=== PATIENT | male | born 1990 | race Caucasian/White ===

== ENCOUNTER → 2018-12-27 | Outpatient (CLI) | payer BC ==
[2018-12-27 18:51] LABS: Vitamin D 25 Hydroxy 30.9 ng/mL (30.0-100.0)
[2018-12-27 19:26] LABS: African American GFR (CKD) 106.1 (60.0-200.0); Albumin 4.6 g/dL (3.80-4.90); Albumin/Globulin Ratio 1.84 (1.60-3.17); Anion Gap 11.1 mmol/L (4.00-12.00); BUN/Creat Ratio 13.64 Ratio (12.00-20.00); Calcium 7.8 mg/dL (8.7-10.3); Carbon Dioxide 25.9 mmol/L (21.6-31.8); Globulin 2.5 g/dL (1.6-3.3); Parathyroid Hormone Intact 5.8 pg/mL (14.0-72.0); Potassium 4.2 mmol/L (3.5-5.5); Total Bilirubin 1.1 mg/dL (0.3-1.2); Total Protein 7.1 g/dL (6.2-8.2)
== END | disposition home or self-care (01) ==
LOC: LABWHC1 09:08
PROVIDERS: ATTEND Internal Medicine Endocrinology, Diabetes & Metabolism
DX: E20.8 Other hypoparathyroidism (principal)
CPT/HCPCS: 36415; 80053; 82306; 83970

== ENCOUNTER 2022-07-08 08:01 | Emergency (ER) | payer BC ==
[2022-07-08 08:05] VITALS: RESP 16; TEMP 97
[2022-07-08] MEDS ORDERED: diphenhydrAMINE 50 MG/ML 1 ML VIAL IM STA (08:15)
[2022-07-08 08:30] LABS: Basophils # (A) 0.1 k/uL (0-0.2); Basophils % (A) 1 %; Eosinophils # (A) 0.4 k/uL (0-0.7); Eosinophils % (A) 6 %; HCT 42.9 % (39.0-53.0); HGB 15.3 gm/dL (13.0-17.5); Hyperchromasia Slight; Lymphocytes # (A) 1.6 k/uL (1.0-4.8); Lymphocytes % (A) 21 %; MCH 31.3 pg (25.0-35.0); MCHC 35.7 g/dL (31.0-37.0); MCV 87.7 fL (80.0-100.0); Mean Platelet Volume 9.8; Monocytes # (A) 0.4 k/uL (0-1.0); Monocytes % (A) 6 %; Neutrophils # (A) 4.8 k/uL (1.3-7.7); Neutrophils % (A) 65 %; Platelet Count 191 k/uL (150-450); RDW 11.5 % (11.5-15.5); WBC 7.4 k/uL (3.8-10.6)
--- NOTE | 2022-07-08 08:30 | ED ---
Skin/Abscess/FB HPI - General Chief complaint: Skin/Abscess/Foreign Body Stated complaint: hives Time Seen by Provider: 07/08/22 08:12 Source: patient Mode of arrival: ambulatory Limitations: no limitations - History of Present Illness Initial comments: Patient is a 31-year-old male presenting to the emergency room with complaints of waking this morning with a rash to his bilateral upper and lower extremities. He denies any rash to the trunk or head. He denies any recent illnesses though his son recently was sick. He denies any changes in medication or new medications, changes in detergents or other personal hygiene products. He denies any known exposure to skin irritants such as chemicals or plants. He is on calcitriol for hypocalcemia but denies taking any other medications. He denies previous similar rashes. He denies any chest pain, shortness of breath, lip or tongue swelling, abdominal pain, nausea, vomiting, headache, fevers or chills. - Related Data Previous Rx's Medication Instructions Recorded Calcium Carbonate [Tums] 500 mg PO QID #28 tab 07/08/22 diphenhydrAMINE HCL [Benadryl 25 mg PO Q6H PRN #30 tab 07/08/22 Allergy] predniSONE 10 mg PO DAILY #8 tab 07/08/22 Allergies Allergy/AdvReac Type Severity Reaction Status Date / Time No Known Allergies Allergy Verified 07/08/22 08:02 Review of Systems ROS Statement: Those systems with pertinent positive or pertinent negative responses have been documented in the HPI. ROS Other: All systems not noted in ROS Statement are negative. Past Medical History Additional Past Medical History / Comment(s): Hypocalcemia History of Any Multi-Drug Resistant Organisms: None Reported Past Surgical History: Hernia Repair Past Psychological History: No Psychological Hx Reported Smoking Status: Never smoker Past Alcohol Use History: None Reported Past Drug Use History: None Reported General Exam - General Exam Comments Initial Comments: GENERAL: No acute distress, well developed, well nourished. HEENT: Normocephalic, atraumatic. Pupils equal, round, reactive to light. Moist mucous membranes. LUNGS: No respiratory distress. Clear to auscultation, no adventitious sounds, no use of accessory muscles. HEART: Regular rate and rhythm without murmur, rub, or gallop. ABDOMEN: Normal bowel sounds. Soft, non-tender, non-distended. BACK: Normal inspection. EXTREMITIES: No edema. No tenderness. Moves all extremities. NEUROLOGIC: Alert & oriented x 3. CN II-XII grossly intact. No focal neurological deficits or weakness. PSYCHIATRIC: Normal affect and behavior. DERMATOLOGIC: Macular papular rash noted to bilateral upper and lower extremi ties both isolated to the distal portions of the extremities. No central clearing, plaques or vesicles noted. Limitations: no limitations Course Vital Signs 07/08/22 07/08/22 08:02 10:20 Temperature 97 F L Pulse Rate 88 94 Respiratory 16 Rate Blood Pressure 130/80 144/92 O2 Sat by Pulse 98 100 Oximetry Medical Decision Making - Medical Decision Making Was pt. sent in by a medical professional or institution (, PA, CAR DUMPER OPERATOR, urgent care, hospital, or detention...) When possible be specific @ -No Did you speak to anyone other than the patient for history (EMS, parent, family, police, friend...)? What history was obtained from this source @ -No Did you review nursing and triage notes (agree or disagree)? Why? @ -I reviewed and agree with nursing and triage notes except rash presentation less consistent with hives. Were old charts reviewed (outside hosp., previous admission, EMS record, old EKG, old radiological studies, urgent care reports/EKG's, detention records)? Report findings @ -None available Differential Diagnosis (chest pain, altered mental status, abdominal pain women, abdominal pain men, vaginal bleeding, weakness, fever, dyspnea, syncope, headache, dizziness, GI bleed, back pain, seizure, CVA, palpatations, mental health)? @ -Differential Rash: Allergic reaction, drug eruption, skin infection, systemic response to hyperphosphatemia arditis, this is not meant to be an all-inclusive list. EKG interpreted by me (3pts min.). @ -Sinus rhythm, ventricular rate 89 bpm, TN interval 120 ms, QRS duration 101 ms, QT/QTC 356/402 ms, PRT axes 59, 71, 16 X-rays interpreted by me (1pt min.). @ -None done CT interpreted by me (1pt min.). @ -None done U/S interpreted by me (1pt. min.). @ -None done What testing was considered but not performed or refused? (CT, X-rays, U/S, labs)? Why? @ -None What meds were considered but not given or refused? Why? @ -None Did you discuss the management of the patient with other professionals (professionals i.e. , PA, CAR DUMPER OPERATOR, lab, RT, psych nurse, aids social worker, branch services manager, teacher, chief media officer, counseling case manager)? Give summary @ -Spoke with Dr. Cuba on for medicine in regards to patient's calcium level. Patient currently asymptomatic. He advised no need for admission. Orders received from him for additional gram of calcium gluconate and Tums at home with continuation of calcitriol. Was smoking cessation discussed for >3mins.? @ -No Was critical care preformed (if so, how long)? @ -No Were there social determinants of health that impacted care today? How? (Homelessness, low income, unemployed, alcoholism, drug addiction, transportation, low edu. Level, literacy, decrease access to med. care, [facility], rehab)? @ -No Was there de-escalation of care discussed even if they declined (Discuss DNR or withdrawal of care, Hospice)? DNR status @ -No What co-morbidities impacted this encounter? (DM, HTN, Smoking, COPD, CAD, Cancer, CVA, ARF, Chemo, Hep., AIDS, mental health diagnosis, sleep apnea, morbid obesity)? @ -Hypocalcemia Was patient admitted / discharged? Hospital course, mention meds given and route, prescriptions, significant lab abnormalities, going to OR and other pertinent info. @ -31-year-old male presenting to the emergency room with acute onset of rash to bilateral upper and lower extremities was trunk and facial sparing without any known irritant or ALLERGIC exposure. No changes in medication. Will give Benadryl as rash is isolated to extremities at this time and monitor. History of hypocalcemia will obtain CBC and CMP. Upon reevaluation patient now with several hive-like lesions to his face including around his eyes. No lip or tongue swelling persists, no difficulty in breathing. Will more aggressively treat rash with Solu-Medrol and Pepcid. CMP r eveals low calcium at 6.9 will add on intact PTH, magnesium and phosphorus levels and obtain an EKG. EKG demonstrates sinus rhythm, magnesium and phosphorus within normal limits. Rash improving after Solu-Medrol and Pepcid. Will give 1 g of calcium gluconate. Recommend admission for observation of calcium level and continued replete of calcium with PTH level currently pending. Spoke with Dr. Cuba with sound physicians regards to recommendation. He advised okay for discharge today and ordered additional calcium repletion. Advice patient is a all above findings. He is agreeable for discharge home with strict return parameters. Education regarding risks of hypocalcemia incises symptoms of hypocalcemia reviewed. Will discharge home with the recommendation of internal medicine consulted with oral calcium supplementation continued calcitriol, close follow-up with his primary care provider and strict return parameters. Undiagnosed new problem with uncertain prognosis? @ -No Drug Therapy requiring intensive monitoring for toxicity (Heparin, Nitro, Insulin, Cardizem)? @ -No Were any procedures done? @ -No Diagnosis/symptom? @ -Dermatitis Acute, or Chronic, or Acute on Chronic? @ -Acute Uncomplicated (without systemic symptoms) or Complicated (systemic symptoms)? @ -Uncomplicated Side effects of treatment? @ -No Exacerbation, Progression, or Severe Exacerbation? @ -No Poses a threat to life or bodily function? How? (Chest pain, [place], SD, pneumonia, PE, COPD, DKA, ARF, appy, cholecystitis, CVA, Diverticulitis, Homicidal, Suicidal, threat to staff... and all critical care pts) @ -No Diagnosis/symptom? @ -Hypocalcemia Acute, or Chronic, or Acute on Chronic? @ -Acute on chronic Uncomplicated (without systemic symptoms) or Complicated (systemic symptoms)? @ -Complicated Side effects of treatment? @ -none Exacerbation, Progression, or Severe Exacerbation] @ -no Poses a threat to life or bodily function? @ -Yes, but currently asymptomatic at this time stable for discharge. Case discussed with Dr. Stephens - Lab Data Result diagrams: 07/08/22 08:18 07/08/22 08:18 Lab Results 07/08/22 07/08/22 07/08/22 Range/Units 08:18 08:18 09:11 WBC 7.4 (3.8-10.6) k/uL RBC 4.90 (4.30-5.90) m/uL Hgb 15.3 (13.0-17.5) gm/dL Hct 42.9 (39.0-53.0) % MCV 87.7 (80.0-100.0) fL MCH 31.3 (25.0-35.0) pg MCHC 35.7 (31.0-37.0) g/dL RDW 11.5 (11.5-15.5) % Plt Count 191 (150-450) k/uL MPV 9.8 Neutrophils % 65 % Lymphocytes % 21 % Monocytes % 6 % Eosinophils % 6 % Basophils % 1 % Neutrophils # 4.8 (1.3-7.7) k/uL Lymphocytes # 1.6 (1.0-4.8) k/uL Monocytes # 0.4 (0-1.0) k/uL Eosinophils # 0.4 (0-0.7) k/uL Basophils # 0.1 (0-0.2) k/uL Hyperchromasia Slight Sodium 140 (137-145) mmol/L Potassium 3.9 (3.5-5.1) mmol/L Chloride 106 (98-107) mmol/L Carbon Dioxide 27 (22-30) mmol/L Anion Gap 7 mmol/L BUN 17 (9-20) mg/dL Creatinine 1.04 (0.66-1.25) mg/dL Est GFR (CKD-EPI)AfAm >90 (>60 ml/min/1.73 sqM) Est GFR (CKD-EPI)NonAf >90 (>60 ml/min/1.73 sqM) Glucose 109 H (74-99) mg/dL Calcium 6.9 L (8.4-10.2) mg/dL Phosphorus 4.5 (2.5-4.5) mg/dL Magnesium 1.6 (1.6-2.3) mg/dL Total Bilirubin 0.7 (0.2-1.3) mg/dL AST 29 (17-59) U/L ALT 30 (4-49) U/L Alkaline Phosphatase 70 (38-126) U/L Total Protein 7.4 (6.3-8.2) g/dL Albumin 4.4 (3.5-5.0) g/dL Disposition Clinical Impression: Dermatitis, Hypocalcemia Disposition: HOME SELF-CARE Condition: Stable Instructions (If sedation given, give patient instructions): Hypocalcemia (ED) Additional Instructions: Please take medication of prednisone, Benadryl and calcium carbonate (Tums as prescribed by internal medicine consult in provider. Please follow-up with your primary care provider. Please continue to take your calcitriol as prescribed. Please return to the Emergency Department if symptoms worsen or any other concerns. Prescriptions: diphenhydrAMINE HCL [Benadryl Allergy] 25 mg PO Q6H PRN #30 tab PRN Reason: Rash predniSONE 10 mg PO DAILY #8 tab Calcium Carbonate [Tums] 500 mg PO QID #28 tab Is patient prescribed a controlled substance at d/c from ED?: No Referrals: None,Stated [Primary Care Provider] - 1-2 days Time of Disposition: 12:19
[2022-07-08 08:52] LABS: ALT 30 U/L (4-49); AST 29 U/L (17-59); African American GFR (CKD) >90 (>60 ml/min/1.73 sqM); Albumin 4.4 g/dL (3.5-5.0); Alkaline Phosphatase 70 U/L (38-126); Anion Gap 7 mmol/L; Blood Urea Nitrogen 17 mg/dL (9-20); Calcium 6.9 mg/dL (8.4-10.2); Carbon Dioxide 27 mmol/L (22-30); Chloride 106 mmol/L (98-107); Glucose 109 mg/dL (74-99); Non-African American GFR(CKD) >90 (>60 ml/min/1.73 sqM); Potassium 3.9 mmol/L (3.5-5.1); Sodium 140 mmol/L (137-145); Total Bilirubin 0.7 mg/dL (0.2-1.3); Total Protein 7.4 g/dL (6.3-8.2)
[2022-07-08] MEDS ORDERED: methylPREDNISolone SOD SUCCI 125 MG/2 ML VIAL IV STA (09:10)
[2022-07-08] MEDS ORDERED: FAMOTIDINE 20 MG/2 ML VIAL IV STA (09:25)
[2022-07-08 09:38] LABS: Magnesium 1.6 mg/dL (1.6-2.3); Phosphorus 4.5 mg/dL (2.5-4.5)
[2022-07-08 10:27] VITALS: BP 144/92; PULSE 94
--- NOTE | 2022-07-08 10:35 | P.CONS ---
History of Present Illness - Reason for Consult Consult date: 07/08/22 - Chief Complaint rash, hypocalcemia - History of Present Illness 31-year-old man with medical history of hypoparathyroidism with hypocalcemia presented for upper and lower do the rash. Patient says he woke up this morning with sudden onset rash the spared his arms. The rash was itchy, but not painful. He has never had this before and therefore presented to the emergency room for further evaluation. Patient says that he takes calcium supplements but is intermittently compliant with them. He has a history of low calcium but has not had this checked in quite some time. He does have a primary care physician but has sparing follow-up. He denies fevers, chills, nausea, vomiting, chest pain, palpitations, sick be, presyncopal, cough, dyspnea, abdominal pain, constipation, diarrhea, dysuria, dyschezia, numbness/weakness of extremities, denies tingling of extremities. Denies perioral numbness. Denies myalgias, myoclonus. Reports improvement in rash with Benadryl and steroids. In the emergency room, patient was afebrile, 130/80, heart rate 88, 98% on room air. CBC is unremarkable. Chemistries show a calcium of 6.9, otherwise unremarkable. Phosphorus is 4.5. Magnesium was 1.6. No imaging to review. All Systems reviewed and pertinent positives and negatives noted in HPI, all other symptoms are negative Gen: in no apparent distress, resting comfortably in bed Eyes: PERRL, no scleral injection or icterus HENT: normocephalic, atraumatic, good hearing acuity, moist mucous membranes Neck: no tracheal deviation, full range of motion Resp: good air exchange, breathing comfortably with no accessory muscle use, no tactile fremitus, clear to auscultation bilaterally CVS: good distal perfusion x 4, no pitting edema, regular rate and rhythm, no murmurs GI: soft, NTTP, ND, no hepatosplenomegaly, normal bowel sounds : no suprapubic tenderness, no CVAT, mcneil catheter not present MSK: no clubbing, no cyanosis, no noted contractures of extremities Skin: no noted rashes, petechiae; temperature of skin is appropriate Neuro: moving all extremities without signs of weakness, CN II-XII intact Psych: cooperative, euthymic mood, insight and judgment intact Labs and imaging as above Assessment/plan: Rash -Agree with discharging him on Benadryl when necessary for rash -Can opt in for short course of steroids for a total of 5 days, would use prednisone 10 mg for 4 additional days -Follow up with primary care physician Hypocalcemia with history of hypoparathyroidism -Added 1gm calcium gluconate IVPB for total of 2gm -Reasserted importance of compliance with patient's home calcitriol as well as slow-release calcium/vitamin D supplement -Recommended adding 500 mg calcium carbonate 4 times a day with lab follow-up next Saturday as well as PCP follow-up -Reasserted importance of following up regularly with primary care physician to avoid complications of hypoparathyroidism Patient is full code Patient is stable for discharge from the medical point of view, as above, would discharge him on 500 mg 4 times a day of Tums, Benadryl when necessary, prednisone 10 mg for 4 additional days Past Medical History Past Medical History: No Reported History Additional Past Medical History / Comment(s): Hypocalcemia History of Any Multi-Drug Resistant Organisms: None Reported Past Surgical History: Hernia Repair Past Psychological History: No Psychological Hx Reported Smoking Status: Never smoker Past Alcohol Use History: None Reported Past Drug Use History: None Reported Medications and Allergies Allergies Allergy/AdvReac Type Severity Reaction Status Date / Time No Known Allergies Allergy Verified 07/08/22 08:02 Physical Exam Osteopathic Statement: *. No significant issues noted on an osteopathic structural exam other than those noted in the History and Physical/Consult. Vitals: Vital Signs Temp Pulse Resp BP Pulse Ox 07/08/22 10:20 94 144/92 100 07/08/22 08:02 97 F L 88 16 130/80 98 Intake and Output 07/07/22 07/08/22 07/08/22 22:59 06:59 14:59 Other: Weight 77.111 kg Results CBC & Chem 7: 07/08/22 08:18 07/08/22 08:18 Labs: Abnormal Lab Results - Last 24 Hours (Table) 07/08/22 Range/Units 08:18 Glucose 109 H (74-99) mg/dL Calcium 6.9 L (8.4-10.2) mg/dL
[2022-07-08] MEDS ORDERED: CALCIUM GLUCONATE IN NACL 1 GM in SALINE 1 100ML.BAG IVPB ONE ×2 (11:00→12:00)
== END 2022-07-08 12:30 | disposition home or self-care (01) ==
LOC: EC 08:01
DX: L30.9 Dermatitis, unspecified (principal); E83.51 Hypocalcemia
CPT/HCPCS: 36415; 93005; 80053; 83735; 84100; 85025; 83970; 99284; 96372; 96365; 96366; 96375 ×2; J1200; J2930; J0611

== ENCOUNTER → 2025-01-04 | Outpatient (CLI) | payer OTHER ==
[2025-01-04 10:29] LABS: African American GFR (CKD) >90 (>60 ml/min/1.73 sqM); Blood Urea Nitrogen 14 mg/dL (9-20); Non-African American GFR(CKD) 81 (>60 ml/min/1.73 sqM)
--- NOTE | 2025-01-04 12:40 | CT ---
EXAMINATION TYPE: CT abdomen pelvis wo/w con DATE OF EXAM: 01/04/2025 11:47 AM COMPARISON: None. 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 TECHNIQUE:CT scan of the abdomen and pelvis is performed with Oral Contrast and without and with IV C ontrast, patient injected with 80 ml mL of Isovue 300. CT DLP: 802.1 mGycm, Automated exposure control for dose reduction was used. FINDINGS: LUNG BASES-: No visible nodule. No infiltrate. LIVER/GB: No calcified gallstones. No space occupying hepatic lesion. Biliary tree is of normal ca liber. PANCREAS: No inflammation. No distinct mass. SPLEEN: No splenic enlargement. No lesion seen. ADRENALS: No nodule. No thickening. KIDNEYS/BLADDER: Nonvisualization of the left kidney. Compensatory hypertrophy of the right kidney. No hydronephrosis. No nephrolithiasis. No distinct renal mass. Urinary bladder grossly unremarkabl e. BOWEL: Normal appendix. Normal bowel caliber. No inflammation. GENITAL ORGANS: No gross abnormality. LYMPH NODES: No greater than 1cm abdominal or pelvic lymph nodes are appreciated. AORTA: No significant abnormality. OSSEOUS STRUCTURES: No significant abnormality is seen. OTHER: No significant additional abnormality is seen. IMPRESSION: 1. 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 Otherwise unremarkable study . [facility] Rashel Jimenes, , 01/04/2025 12:37 PM
== END | disposition home or self-care (01) ==
LOC: RADCTMAIN 09:51
PROVIDERS: ATTEND Internal Medicine
DX: Q60.0 Renal agenesis, unilateral (principal)
CPT/HCPCS: 82565; 84520; 74178; 36415; Q9967